=== PATIENT | female | born 1965 | race African-American/Black ===

== ENCOUNTER 2020-04-09 18:16 | Emergency (ER) | payer MEDICAID ==
[~2020-04-09] VITALS: Ht 165.1 cm; Wt 77.0 kg
[~2020-04-09 18:16] MED LIST: [UNRECOGNIZED DRUG - OTHER]
[2020-04-09 20:54] LABS: BASOPHILS % 0.4 % (0.0-2.0); HEMATOCRIT. 38.9 % (36.0-48.0); HEMOGLOBIN. 12.7 g/dL (12.0-16.0); LYMPHOCYTES % 41.3 % (20.0-50.0); MEAN CORPUSCULAR HEMOGLOBIN 26.8 pg (28.0-32.0); MEAN PLATELET VOLUME 7.3 fl (7.4-10.4); MONOCYTES % 6.9 % (2.0-8.0); NEUTROPHILS % 49.4 % (40.0-76.0); PLATELET 280 x1000/uL (130-400); RED BLOOD CELL COUNT 4.74 mill/uL (4.2-5.4); RED CELL DISTRIBUTION WIDTH 13.7 % (11.6-14.6)
[2020-04-09 20:55] LABS: CLARITY URINE CLEAR (CLEAR); COLOR URINE YELLOW (YELLOW); KETONES URINE NEGATIVE (NEGATIVE); LEUKOCYTE ESTERASE URINE NEGATIVE (NEGATIVE); NITRITE URINE NEGATIVE (NEGATIVE); OCCULT BLOOD URINE NEGATIVE (NEGATIVE); PROTEIN URINE NEGATIVE (NEGATIVE); SPECIFIC GRAVITY URINE 1.013 (1.005-1.030); UROBILINOGEN URINE 0.2 E.U./dL (0.2-1.0)
[2020-04-09 20:59] LABS: CHLORIDE 105 mEq/L (98-107)
[2020-04-09 21:03] LABS: ETHANOL BLOOD < 10 mg/dL
[2020-04-09 21:07] LABS: *AMPHETAMINES SCREEN URINE NEGATIVE (NEGATIVE); *BARBITURATES SCREEN URINE NEGATIVE (NEGATIVE); *BENZODIAZEPINES SCREEN URINE NEGATIVE (NEGATIVE); *COCAINE SCREEN URINE NEGATIVE (NEGATIVE)
[2020-04-09 21:08] LABS: CANNABINOID URINE SCREEN NEGATIVE (NEGATIVE); METHADONE URINE SCREEN NEGATIVE (NEGATIVE); OPIATES URINE SCREEN NEGATIVE (NEGATIVE); PHENCYCLIDINE URINE SCREEN NEGATIVE (NEGATIVE)
[2020-04-09 23:41] VITALS: BP 134/51
== END 2020-04-10 00:04 | disposition short-term general hospital (02) ==
LOC: ER 18:16 → CANBEDREQ 23:36 → ER 04-10 00:04
DX: R20.8 Other disturbances of skin sensation (principal); R20.0 Anesthesia of skin; R03.0 Elevated blood-pressure reading, without diagnosis of hypertension; J45.909 Unspecified asthma, uncomplicated
CPT/HCPCS: 36415; 80053; 80305; 80320; 81003; 81025; 84484; 85025; 93005; 99285; G0480

== ENCOUNTER 2024-05-08 15:03 | Emergency (ER) | payer MEDICAID ==
[~2024-05-08] VITALS: Ht 165.1 cm; Wt 90.0 kg
[2024-05-08 15:12] VITALS: TEMP 97.8; O2SAT 94
[2024-05-08] MEDS ORDERED: ASPIRIN 325MG TABLET PO ONE (18:45)
[2024-05-08 18:59] LABS: BASOPHILS % 0.6 % (0.0-2.0); EOSINOPHILS % 1.8 % (0.0-5.0); HEMATOCRIT. 38.5 % (36.0-48.0); HEMOGLOBIN. 12.4 g/dL (12.0-16.0); LYMPHOCYTES % 37.4 % (20.0-50.0); MEAN CORPUSCULAR HEMOGLOBIN 26.4 pg (28.0-32.0); MEAN CORPUSCULAR HGB CONC 32.2 g/dL (31.0-37.0); MEAN CORPUSCULAR VOLUME 81.9 fL (81.0-99.0); MEAN PLATELET VOLUME 7.2 fl (7.4-10.4); MONOCYTES % 6.3 % (2.0-8.0); NEUTROPHILS % 53.9 % (40.0-76.0); PLATELET 293 x1000/uL (130-400); WHITE BLOOD COUNT 8.4 x1000/uL (4.5-11.0)
[2024-05-08 19:02] LABS: CHLORIDE 108 mEq/L (98-107); POTASSIUM 4.4 mEq/L (3.5-5.1); SODIUM 141 mEq/L (136-145)
[2024-05-08 19:03] LABS: CARBON DIOXIDE 28 mEq/L (21-32)
[2024-05-08 19:08] LABS: CREATININE 0.8 mg/dL (0.6-1.0); GLUCOSE 88 mg/dL (70-105)
[2024-05-08 19:09] LABS: UREA NITROGEN BLOOD 11 mg/dL (9-23)
[2024-05-08 19:10] LABS: ALANINE AMINOTRANSFERASE 18 IU/L (10-49); ALBUMIN 4.8 g/dL (3.2-4.8); ASPARTATE AMINOTRANSFERASE 17 IU/L (<34)
[2024-05-08 19:11] LABS: BILIRUBIN TOTAL 0.2 mg/dL (0.1-1.0); PROTEIN TOTAL 7.8 g/dL (6.0-8.3)
[2024-05-08 19:36] LABS: TROPONIN I HIGH SENSITIVITY < 4 ng/L (3.0-34)
[2024-05-08] MEDS: ASPIRIN 325MG TABLET PO NR (21:55)
[2024-05-08 22:03] VITALS: BP 129/71; PULSE 90; RESP 18; O2SAT 98
== END 2024-05-08 22:04 | disposition home or self-care (01) ==
LOC: ER 15:03
DX: R07.9 Chest pain, unspecified (principal); J45.909 Unspecified asthma, uncomplicated; E11.9 Type 2 diabetes mellitus without complications; E78.00 Pure hypercholesterolemia, unspecified; Z88.5 Allergy status to narcotic agent
CPT/HCPCS: 36415; 71045; 80053; 84484; 85025; 93005; 99285